=== PATIENT | male | born 1930 | race Caucasian/White ===

== ENCOUNTER 2019-11-30 19:03 | Emergency (ER) | payer MEDICARE, OTHER ==
[~2019-11-30] VITALS: Ht 167.6 cm; Wt 113.6 kg
[2019-11-30] MEDS ORDERED: LIDOcaine 1% W/epiNEPHrine 1:100,000 20ml vial SQ ONE (19:15)
--- NOTE | 2019-11-30 19:54 | NUR ---
[address] cierra to the top / back of head . 3 ney to each laceration . pt denies discomfort at this time
[2019-11-30 20:10] VITALS: BP 122/69
--- NOTE | 2019-11-30 20:22 | NUR ---
[facility] stafff members stated they use [facility] for transportation home .
--- NOTE | 2019-11-30 20:23 | NUR ---
[facility] has been contacted to transport patient home .
--- NOTE | 2019-11-30 21:48 | NUR ---
[facility] here to transport pt back to [place] home.
--- NOTE | 2019-11-30 22:00 | NUR ---
[facility] finally arrived to transport pt home
== END 2019-11-30 22:00 | disposition home or self-care (01) ==
LOC: ER 19:04
DX: S01.01XA Laceration without foreign body of scalp, initial encounter (principal); S09.90XA Unspecified injury of head, initial encounter; M79.89 Other specified soft tissue disorders; I48.91 Unspecified atrial fibrillation; I10 Essential (primary) hypertension; Y93.89 Activity, other specified; Y92.89 Other specified places as the place of occurrence of the external cause; W01.198A Fall on same level from slipping, tripping and stumbling with subsequent striking against other object, initial encounter
CPT/HCPCS: 12002; 70450; 99284

== ENCOUNTER 2022-05-18 21:10 | Emergency (ER) | payer MEDICARE, MEDICAID, OTHER ==
[~2022-05-18] VITALS: Ht 172.7 cm; Wt 127.3 kg
[2022-05-18] MEDS ORDERED: acetaminophen 325mg tablet PO STA (23:02)
[2022-05-18 23:29] LABS: BASOPHILS # (AUTO) 0.1 X10'3 (0-0.2); BASOPHILS % (AUTO) 0.4 % (0-1); EOSINOPHILS % (AUTO) 0.2 % (0-6); HEMATOCRIT 37.4 % (42.0-52.0); HEMOGLOBIN 12.5 g/dl (14.0-17.9); LYMPHOCYTES # (AUTO) 2.9 X10'3 (1.1-4.8); LYMPHOCYTES % (AUTO) 19.3 % (21-51); MEAN CORPUSCULAR HEMOGLOBIN 32.2 PG (27.0-31.0); MEAN CORPUSCULAR HGB CONC 33.5 g/dL (33.0-36.5); MEAN CORPUSCULAR VOLUME 96.4 FL (78-98); MEAN PLATELET VOLUME 8.1 FL (7.4-10.4); MONOCYTES # (AUTO) 2.7 X10'3 (0-0.9); MONOCYTES % (AUTO) 17.7 % (2-12); NEUTROPHILS # (AUTO) 9.5 X10'3 (1.8-7.7); NEUTROPHILS % (AUTO) 62.4 % (42-75); PLATELET COUNT 233 X10'3 (140-440); RED BLOOD COUNT 3.88 X10'6 (4.70-6.10); WHITE BLOOD COUNT 15.2 X10'3 (4.5-11.0)
[2022-05-18 23:37] LABS: ALANINE AMINOTRANSFERASE 18 U/L (12-78); ALBUMIN 2.9 G/DL (3.4-5.0); ALBUMIN/GLOBULIN RATIO 0.8 (1.1-1.5); ALKALINE PHOSPHATASE 73 IU/L (46-116); ANION GAP 8 (8-16); ASPARTATE AMINO TRANSFERASE 22 U/L (10-37); BILIRUBIN,TOTAL 0.8 MG/DL (0.1-1.0); BLOOD UREA NITROGEN 23 MG/DL (7-18); BUN/CREATININE RATIO 21.3 (10.0-20.0); CALCIUM 8.6 MG/DL (8.5-10.1); CHLORIDE 102 MMOL/L (99-107); CREATININE 1.08 MG/DL (0.60-1.10); GLUCOSE 110 MG/DL (70-104); POTASSIUM 3.9 MMOL/L (3.5-5.1); SODIUM 136 MMOL/L (135-145); TOTAL CARBON DIOXIDE 26.4 MMOL/L (24-32); TOTAL PROTEIN 6.4 G/DL (6.4-8.2); eGFR 64 ML/MIN
[2022-05-19 00:12] LABS: TOTAL CELLS COUNTED 100
[2022-05-19 00:13] LABS: PLATELET ESTIMATE NORMAL
[2022-05-19 02:20] VITALS: BP 140/75
--- NOTE | 2022-05-19 03:04 | NUR ---
pt was able to bare weight and ambulate a few steps with aid from walker. pt had no complaint of pain or discomfort.
--- NOTE | 2022-05-19 04:02 | NUR ---
lissy at bedside for tx [facility] called and updated status
[2022-05-21] MEDS ORDERED: HYDR25TA4 PO (10:10)
[2022-05-21] MEDS ORDERED: LOSA50TA3 PO (10:10)
[2022-05-21] MEDS ORDERED: ATOR20TA66 PO (10:10)
[2022-05-21] MEDS ORDERED: BRIM5DRO6 OP (10:10)
[2022-05-21] MEDS ORDERED: FINA5TAB11 PO (10:10)
[2022-05-21] MEDS ORDERED: COLL30OI TOP (10:10)
[2022-05-21] MEDS ORDERED: APIX5TAB3 PO (10:10)
[2022-05-21] MEDS ORDERED: ATEN100T PO (10:10)
[2022-05-21] MEDS ORDERED: TIMO5DRO36 OP (10:10)
[2022-05-21] MEDS ORDERED: POTA-82 PO (10:10)
[2022-05-21] MEDS ORDERED: FLO0.4C PO (10:10)
[2022-05-21] MEDS ORDERED: ACET325T55 PO (10:21)
[2022-05-21] MEDS ORDERED: POLY1DRO2 OP (10:21)
[2022-05-21] MEDS ORDERED: TRIA15OI9 TOP (10:21)
[2022-05-21] MEDS ORDERED: COLC0.6T72 PO (10:21)
[2022-05-21] MEDS ORDERED: NAPR-1170 PO (10:21)
[2022-05-21] MEDS ORDERED: MICO14CR5 TOP (10:21)
[2022-05-21] MEDS ORDERED: SODI30SP3 BOTHNARES (10:21)
[2022-05-21] MEDS ORDERED: IPRA30SP (10:25)
== END 2022-05-19 04:04 | disposition home or self-care (01) ==
LOC: ER 21:11
DX: U07.1 COVID-19 (principal); M25.551 Pain in right hip; E78.00 Pure hypercholesterolemia, unspecified; I11.9 Hypertensive heart disease without heart failure
CPT/HCPCS: 36415; 71045; 73502; 73700; 80053; 82948; 83605; 83735; 83880; 84145; 84484; 85007; 85025; 87040; 87502; 87503; 87811; 93005; 99285